=== PATIENT | female | born 1985 | race Caucasian/White ===

== ENCOUNTER 2017-05-12 01:18 | Inpatient (IN) | payer OTHER ==
[2017-05-12 02:18] VITALS: BMI 30.7
[2017-05-12 02:39] LABS: BASO % 0.4 % (0.0-2.0); EOS # 0.1 K/uL (0.0-0.7); EOS % 1.2 % (0.0-4.0); HEMOGLOBIN 11.7 g/dL (11.0-16.0); LYMPH # 2.4 K/uL (1.0-4.3); LYMPH % 22.7 % (20.0-40.0); MEAN CELL VOLUME 85.7 fL (81.0-99.0); MEAN CORPUSCULAR HEMOGLOBIN 29.9 pg (27.0-31.0); MEAN CORPUSCULAR HGB CONC 34.9 g/dL (33.0-37.0); MONO # 0.7 K/uL (0.0-0.8); MONO % 6.6 % (0.0-10.0); NEUT # 7.3 K/uL (1.8-7.0); NEUT % 69.1 % (50.0-75.0); RBC 3.91 Mil/uL (3.80-5.20); RED CELL DISTRIBUTION WIDTH 13.6 % (11.5-14.5); WHITE BLOOD COUNT 10.5 K/uL (4.8-10.8)
[2017-05-12 02:52] LABS: ALBUMIN 3.6 g/dL (3.5-5.0); ALT/SGPT 21 U/L (9-52); AST/SGOT 26 U/L (14-36); BLOOD UREA NITROGEN 6 mg/dL (7-17); CALCIUM 9.5 mg/dl (8.6-10.4); GFR AFRICAN-AMERICAN > 60; GFR NON-AFRICAN AMERICAN > 60
[2017-05-12 02:56] LABS: SQUAMOUS EPITHIAL 4 /hpf (0-5); URINE BACTERIA RARE (<OCC); URINE BILIRUBIN NEGATIVE (NEGATIVE); URINE BLOOD NEGATIVE (NEGATIVE); URINE CLARITY Clear (Clear); URINE COLOR Straw (YELLOW); URINE GLUCOSE (UA) NORMAL (Normal); URINE LEUKOCYTE ESTERASE NEG Leu/uL (Negative); URINE NITRATE NEGATIVE (NEGATIVE); URINE PROTEIN NEGATIVE (NEGATIVE); URINE UROBILINOGEN NORMAL mg/dL (0.2-1.0)
[2017-05-12] MEDS ORDERED: Bupivacaine 0.125%/FentaNYL 200 ML EPI ONE (03:11)
--- NOTE | 2017-05-12 05:15 | OBADHP ---
Datetime: 05/12/2017 01:11 Admit Comment, IP Provider: at 39+weeks came with c/o ctxs started in the night , irrg, 01/02, n o vb, lof+fm obhx primi pmh de med pnv all nkda psh den soch de ve 4-/-2 a/p t 39+weeks in labor admit to l_d npo/ivf labs pain gary cont oc and efm 'anticipate Pelvic Type - PN: Adequate Extremities - PN: Normal Abdomen - PN: Normal Back - PN: Normal Breast - PN: Normal Lungs - PN: Normal Heart - PN: Normal Thyroid - PN: Normal Neurologic - PN: Normal HEENT - PN: Normal General - PN: Normal FHR - Baseline A Provider: 130 IP Hx Assessment: The History has been Reviewed and is Current Vital Signs Provider: Reviewed; Within Normal Limits IP Chief Complaint: Uterine contractions NICHD Variability Prov Fetus A: Moderate 6-25bpm NICHD Accel Fetus A IP Provider: [id number] FHR Category Provider Fetus A: Category I Dilatation, Provider: 5 Effacement, Provider: 80 Station, Provider: -2 Genitourinary Exam: Normal DTRs - PN: Normal IP Adm Impression: Term, intrauterine ; Active labor IP Admit Plan: Admit to unit; Initiate labor protocol
[2017-05-12] MEDS ORDERED: Lactated Ringer's 1,000 ML IV SCH (05:30)
--- NOTE | 2017-05-12 05:58 | OBPN ---
Datetime: 05/12/2017 05:50 IP Progress Impression: Normal progression of labor IP Informed Consent Obtain: Vaginal Delivery IP Procedures: Artificial ROM IP Progress Plan: Continue present management Membranes, Provider: Ruptured Amniotic Fluid Color, Provider: Clear FHR - Baseline A Provider: 150 Gestation - Est Wks by US: 39.3 Presentation-Admit: Vertex IP Progress Note Comment: pt seen and examined reporting pressure. Pt denies any lof, vb, +FM VSS VE: 9.5/100/0 EFM: 150/mod alfred TOCO: q 2-3 min A/P @ 39.3 wks GA -cont curretn managment -will start pushing when 10cm FHR Category Provider Fetus A: Category I NICHD Variability Prov Fetus A: Moderate 6-25bpm Dilatation, Provider: 10 Effacement, Provider: 100 Station, Provider: 0 NICHD Decel Fetus A IP Provider: None Datetime: 05/12/2017 01:11 Vital Signs Provider: Reviewed; Within Normal Limits NICHD Accel Fetus A IP Provider: [id number]
[2017-05-12] MEDS ORDERED: Oxycodone/Acetaminophen 5/325 mg Tab PO PRN ×2 (07:16)
--- NOTE | 2017-05-12 07:17 | OBDS ---
DELIVERY PERSONNEL Delivery Doctor: Michael Phillips MD Train Gate Attendant: Ava Butts RN Anesthesiologist: SAM MATERNAL INFORMATION Delivery Anesthesia: Epidural Provider Comments: pt was fully dilated and pushing. atruamci, spontenosu deliveyr of head, tight nu chal cord x 1 around body, lloosened. atrmatic, spontanous deilvery of nateiro followed yb posteior s houlder followed by deliveyr of body . both oral an dnsal psasages of anastasia baby bulb suctioned. umbilv cs cord clamped and cut. baby hadned to mother on abodmne. cord blood, stem cell and tissues collecte c. spotenocus deliveyr of intat placnet iwth membrnaes. fundu firm. good hemsosis. second degree adam enal laceationed noted and repoareid iwth 2-0 chromc. good hemosists. no complication live male infnat agpars 9,9 weight of 6lbs 11 ounces ebl 300 ml n no complicaitons LABOR SUMMARY EDC: 05/16/2017 00:00 No. Babies in Womb: 1 Attempted: No Labor Anesthesia: Epidural LABOR INFORMATION Onset of Labor: 05/11/2017 23:15 Complete Dilatation: 05/12/2017 06:30 Group B Beta Strep: Negative Steroids Given: None MEMBRANES Membranes Rupture Method: Artificial (Annotations: by dr phillips) Rupture of Membranes: 05/12/2017 05:47 Length of Rupture (hrs): 1.13 Amniotic Fluid Color: Clear Amniotic Fluid Amount: Scant Amniotic Fluid Odor: Normal STAGES OF LABOR Stage 1 hrs: 7 Stage 1 min: 15 Stage 2 hrs: 0 Stage 2 min: 25 Stage 3 hrs: 0 Stage 3 min: 6 Total Time in Labor hrs: 7 Total Time in Labor min: 46 VAGINAL DELIVERY Laceration Repair Note: second degree perienal laceatin noted and repaired with 2-0 chormic Count Comment: yes BABY A INFORMATION Delivery Date/Time: 05/12/2017 06:55 Method of Delivery: Vaginal Born in Route : No : N/A Forceps: N/A Vacuum Extraction: N/A Shoulder Dystocia : No SHOULDER DYSTOCIA BABY A Delivery Date/Time: 05/12/2017 06:55 PRESENTATION/POSITION BABY A Presentation: Cephalic Cephalic Presentation: Vertex Breech Presentation: N/A PLACENTA INFORMATION BABY A Placenta Delivery Time : 05/12/2017 07:01 Placenta Method of Delivery: Spontaneous Placenta Status: Delivered SCORES BABY A Heart Rate 1 min: >100 bpm Resp Effort 1 min: Good Cry Reflex Irritability 1 min: Cough or Sneeze or Pulls Away Muscle Tone 1 min: Active Motion Color 1 min: Body [place], Extremities Blue SCORE 1 MIN: 9 Heart Rate 5 min: >100 bpm Resp Effort 5 min: Good Cry Reflex Irritability 5 min: Cough or Sneeze or Pulls Away Muscle Tone 5 min: Active Motion Color 5 min: Body [place], Extremities Blue SCORE 5 MIN: 9 INFANT INFORMATION BABY A Gestational Age at Delivery: 39.3 Gestational Status: Term Infant Outcome : Liveborn Condition : Stable Infant Sex: Male IDENTIFICATION/MEDS BABY A ID Band Number: [id number] ID Band Location: Left Leg; Left Arm Sensor Applied: Yes Sensor Number: [id number] Sensor Location : Cord Clamp WEIGHT/LENGTH BABY A Infant Birthweight (gms): 3040 Infant Weight (lb): 6 Weight (oz): 11 Length Inches: 19.50 Infant Length cms: 49.5 CORD INFORMATION BABY A No. Cord Vessels: 3 Nuchal Cord : Around Neck x1, Loose Cord Blood Taken: Yes Suction: Mouth; Nose ASSESSMENT BABY A Complications: None Physical Findings at Delivery: Within Normal Limits Respirations: Appears Normal Gas Pipe Layer/ALS Called : No Care By: DR TEJADA Transferred To: Remains with Mother
[2017-05-12] MEDS ORDERED: Benzocaine/Menthol 20%-0.5% Topical Spray (60 ml) TOP SCH (07:30)
[2017-05-13 08:00] LABS: BASO # 0.1 K/uL (0.0-0.2); BASO % 0.5 % (0.0-2.0); EOS # 0.1 K/uL (0.0-0.7); EOS % 0.8 % (0.0-4.0); LYMPH # 2.2 K/uL (1.0-4.3); LYMPH % 16.1 % (20.0-40.0); MEAN CELL VOLUME 85.9 fL (81.0-99.0); MEAN CORPUSCULAR HEMOGLOBIN 29.8 pg (27.0-31.0); MEAN CORPUSCULAR HGB CONC 34.7 g/dL (33.0-37.0); MEAN PLATELET VOLUME 9.9 fL (7.2-11.7); MONO # 0.8 K/uL (0.0-0.8); NEUT # 10.6 K/uL (1.8-7.0); NEUT % 76.6 % (50.0-75.0); RBC 3.25 Mil/uL (3.80-5.20); RED CELL DISTRIBUTION WIDTH 13.7 % (11.5-14.5); WHITE BLOOD COUNT 13.9 K/uL (4.8-10.8)
[2017-05-13 08:11] LABS: HEMOGLOBIN 9.7 g/dL (11.0-16.0)
[2017-05-13] MEDS ORDERED: Benzocaine/Menthol 20%-0.5% Topical Spray (60 ml) EXT PRN (09:07)
--- NOTE | 2017-05-14 07:46 | OBPPN ---
Datetime: 05/14/2017 07:45 PP Pain Prov: Within normal limits PP Nausea Prov: Denies PP Flatus Prov: Yes PP BM Prov: Yes PP Breasts Prov: Normal PP Heart Prov: Normal PP Lungs Prov: Normal PP Abdomen/Uterus Prov: Normal PP Lochia Prov: Normal PP Vulva/Perineum Prov: Normal PP CVA Tenderness Prov: Normal PP Extremities Prov: Normal PP C/S Incision Prov: Not Applicable PP Progress Prov: Normal PP Impression Prov: Normal progression PP Plan Prov: Discharge PP Progress Note Prov: Patient seen and examined at bedside and reports pain well controlled with pa in medication. pt reports ambulating, voiding, passing, flatus, toelrating regular baby, denies any f ever, chills, nasue, vomiting, CP, SOB, dizzyness, lightheadness. VSS PE: GEN: NAD AA Ox 3 BREAST: NT, Non engorged b/l RESP: Ctab/l CVS: RRR, +S1/S2 ABD: soft, NT/ND, +BS, no ugarding no rebound tendnerss, no rigidty, no uterien tendenrss VE: minimal lochia, non foul smelling EXT: non calf tenderness, negative ruma's sign A/P: 32 y/o s/p PPD#2, stable for discharge -d/c home -f/u clinic 6 week -nothign per vagina, no sex, no douchign, no tampons x 6 weeks. If fever, chest pain, sob, pain, h eavy vaignal bleeding, lightheadness, dizzyness, go to ER and call your doctor IP PP Procedures: None Vital Signs Provider PP: Reviewed; Within Normal Limits Datetime: 05/13/2017 11:02 PP Comments Phys Exam Prov: Abdomen: Soft, non-tender, BSx4, fundus is firm and slightly below the u mbilicus
--- NOTE | 2017-05-14 07:48 | OBDCSUM ---
Datetime: 05/14/2017 07:46 Discharged to, Provider: Home Follow up at, Provider: Dr Briones Disch Instr Activity: Normal activity Disch Instr Diet: Regular Discharge Instructions, Provider: Routine instructions given Discharge Diagnosis, Provider: Term Delivered Discharge Time: 05/14/2017 07:46 Follow up in weeks, Provider: 6 weeks Disch Referrals: None Contraception discussed, Prov: Yes Disch Activity Restrictions: No sexual activity; Nothing in vagina - [place], tampons, douche Discharge Comment, Provider: precautions given Contraception after Delivery: Not Planning to Use
[2017-05-14 07:53] VITALS: BP 91/57; PULSE 66; RESP 18; O2SAT 97
[2017-05-14 18:36] VITALS: TEMP 97.2
== END 2017-05-14 14:36 | disposition home or self-care (01) | DRG 775 ==
LOC: C.EROB 01:18 → C.4D 01:40 → C.4M 09:30
PROVIDERS: ADMIT Obstetrics & Gynecology; ATTEND Obstetrics & Gynecology
PROC: 10E0XZZ Delivery of Products of Conception, External Approach (ICD-10-PCS; principal; 2017-05-12)
PROC: 10907ZC Drainage of Amniotic Fluid, Therapeutic from Products of Conception, Via Natural or Artificial Opening (ICD-10-PCS; 2017-05-12)
DX: O69.1XX0 Labor and delivery complicated by cord around neck, with compression, not applicable or unspecified (principal); Z3A.39 39 weeks gestation of pregnancy; Z37.0 Single live birth